=== PATIENT | male | born 1980 | race African-American/Black ===

== ENCOUNTER 2022-09-04 02:05 | Emergency (ER) | payer MEDICAID, OTHER ==
[~2022-09-04] VITALS: Ht 182.9 cm; Wt 81.6 kg
[2022-09-04] MEDS ORDERED: CEFTRIAXONE 1 G VIAL ONE (02:42)
[2022-09-04] MEDS ORDERED: CLINDAMYCIN PHOSPHATE 600 MG/4 ML VIAL IM ONE (02:45)
[2022-09-04] MEDS ORDERED: CLINDAMYCIN 900MG/D5W 100ML IVPB **ER PYXIS ONLY IJ ONE (02:53)
[2022-09-04] MEDS ORDERED: OXYC-128 PO (02:54)
[2022-09-04] MEDS ORDERED: ONDA4TAB5 PO (02:54)
[2022-09-04] MEDS ORDERED: CLIN300C12 PO (02:54)
[2022-09-04] MEDS ORDERED: CLINDAMYCIN PHOSPHATE IV 900 MG in IV DEXTROSE 5% 100 ML IV ONE (03:00)
[2022-09-04] MEDS ORDERED: ONDANSETRON 4 MG/2 ML VIAL IV ONE (03:15)
[2022-09-04] MEDS ORDERED: ONDANSETRON ODT 4 MG TAB.RAPDIS ONE (03:25)
[2022-09-04 03:27] VITALS: BP 123/80
[2022-09-04] MEDS ORDERED: ONDANSETRON ODT 4 MG TAB.RAPDIS SL ONE (03:30)
== END 2022-09-04 03:27 | disposition home or self-care (01) ==
LOC: ER 02:11
DX: K13.0 Diseases of lips (principal); R03.0 Elevated blood-pressure reading, without diagnosis of hypertension
CPT/HCPCS: 99284; 96365; 96375; J3490; J2405; A4663; J0696; Q0162